=== PATIENT | male | born 1975 | race Hispanic/Latino ===

== ENCOUNTER 2017-08-21 20:24 | Emergency (ER) | payer OTHER ==
[2017-08-21 21:36] LABS: Basophils % (Auto) 0.8 % (0.0-1.8); Eosinophils % (Auto) 3.4 % (0.0-4.3); Hematocrit 47.1 % (35.5-45.6); Hemoglobin 15.2 gm/dl (11.8-15.2); Mean Corpuscular HGB Conc 32 % (32-34); Mean Corpuscular Volume 79 fl (84-94); Platelet Count 194 K/mm3 (140-440); Red Blood Count 5.95 M/mm3 (3.65-5.03); Red Cell Distribution Width 15.6 % (13.2-15.2); White Blood Count 9.7 K/mm3 (4.5-11.0)
[2017-08-21 21:47] LABS: INR 0.98 (0.87-1.13)
[2017-08-21 21:48] LABS: Mean Corpuscular Hemoglobin 26 pg (28-32); Partial Thromboplastin Time 31.5 Sec. (24.2-36.6)
[2017-08-21 21:57] LABS: Alanine Aminotransferase 29 units/L (7-56); Albumin/Globulin Ratio 1.5 %; Alkaline Phosphatase 59 units/L (35-129); Anion Gap 19 mmol/L; BUN/Creatinine Ratio 28; Blood Urea Nitrogen 14 mg/dL (9-20); Calcium 9.1 mg/dL (8.4-10.2); Carbon Dioxide 25 mmol/L (22-30); Chloride 98.8 mmol/L (98-107); Glucose 184 mg/dL (75-100); Potassium 4.4 mmol/L (3.6-5.0); Sodium 138 mmol/L (137-145); Total Protein 6.6 g/dL (6.3-8.2)
[2017-08-21 22:06] LABS: Urine Drugs of Abuse Note Disclamer
[2017-08-21] MEDS ORDERED: LOPRESSOR PO ONE (22:39)
[2017-08-21 22:47] LABS: Bilirubin,Urine Negative (Negative); Blood,Urine Negative (Negative); Ketones,Urine Negative (Negative)
[2017-08-21 22:48] LABS: Leukocyte Esterase,Urine Negative (Negative); Nitrite,Urine Negative (Negative); Protein,Urine <15 mg/dL mg/dL (Negative); RBC,Urine < 1.0 /HPF (0.0-6.0); Urobilinogen,Urine < 2.0 mg/dL (<2.0); WBC,Urine < 1.0 /HPF (0.0-6.0)
[2017-08-22 00:54] VITALS: BP 132/82
--- NOTE | 2017-08-22 01:26 | Emergency Department Report ---
ED Palpitations HPI - General Chief Complaint: Arrhythmia/Palpitations Stated Complaint: POSS A-FIB Time Seen by Provider: 08/21/17 21:13 Source: patient, EMS Mode of arrival: Stretcher Limitations: No Limitations - History of Present Illness Initial Comments: Patient was hospitalized last week for Afib with RVR at [facility] and released on metroprolol 12.5 mg XL, flecanide and pradaxa. He then went for follow up on Saturday to [facility] for check up which he was doing fine. Today he had tachycardia and went to the urgent care where they transferred him to [facility] again. His HR got up to 224 there and he was given an additional dose of flecinide and placed on a cardizem drip. He was transferred here and by the time he got here he was stable. He first had afib 7 years ago when he had to be cardioverted twice. He has had no problems since until last week. MD Complaint: rapid heart beat -: Sudden Context: occured during rest Arrythmia History: atrial fibrillation Associated Symptoms: shortness of breath Treatments Prior to Arrival: vagal maneuvers, beta-alex, calcium channel alex - Related Data Previous Rx's Medication Instructions Recorded Last Taken Type Metoprolol Tartrate 50 mg PO BID #60 tablet 08/22/17 Unknown Rx Allergies Allergy/AdvReac Type Severity Reaction Status Date / Time No Known Allergies Allergy Unverified 08/21/17 20:41 ED Review of Systems ROS: Stated complaint: POSS A-FIB Other details as noted in HPI Constitutional: denies: chills, fever Eyes: denies: eye pain, eye discharge, vision change ENT: denies: ear pain, throat pain Respiratory: denies: cough, shortness of breath, wheezing Cardiovascular: palpitations. denies: chest pain Endocrine: no symptoms reported Gastrointestinal: denies: abdominal pain, nausea, diarrhea Genitourinary: denies: urgency, dysuria Musculoskeletal: denies: back pain, joint swelling, arthralgia Skin: denies: rash, lesions Neurological: denies: headache, weakness, paresthesias Psychiatric: denies: anxiety, depression Hematological/Lymphatic: denies: easy bleeding, easy bruising ED Past Medical Hx - Past Medical History Previous Medical History?: Yes Hx Hypertension: Yes Hx Diabetes: Yes Additional medical history: A.Fib. sleep apnea - Surgical History Additional Surgical History: cardiac ablasion - Social History Smoking Status: Never Smoker Substance Use Type: None - Medications Home Medications: Home Medications Medication Instructions Recorded Confirmed Last Taken Type Metoprolol Tartrate 50 mg PO BID #60 tablet 08/22/17 Unknown Rx ED Physical Exam - General Limitations: No Limitations General appearance: alert, in no apparent distress - Head Head exam: Present: atraumatic, normocephalic - Eye Eye exam: Present: normal appearance - ENT ENT exam: Present: mucous membranes moist - Neck Neck exam: Present: normal inspection - Respiratory Respiratory exam: Present: normal lung sounds bilaterally. Absent: respiratory distress - Cardiovascular Cardiovascular Exam: Present: regular rate, normal rhythm. Absent: systolic murmur, diastolic murmur, rubs, gallop - GI/Abdominal GI/Abdominal exam: Present: soft, normal bowel sounds - Rectal Rectal exam: Present: deferred - Extremities Exam Extremities exam: Present: normal inspection - Back Exam Back exam: Present: normal inspection - Neurological Exam Neurological exam: Present: alert, oriented X3 - Psychiatric Psychiatric exam: Present: normal affect, normal mood - Skin Skin exam: Present: warm, dry, intact, normal color. Absent: rash ED Course Vital Signs 08/21/17 08/21/17 08/21/17 20:42 20:46 21:00 Temperature 98.2 F Pulse Rate 121 H 146 H 107 H Respiratory 17 20 23 Rate Blood Pressure 149/92 149/92 150/93 O2 Sat by Pulse 98 96 96 Oximetry 08/21/17 08/21/17 08/21/17 21:05 21:16 21:30 Temperature Pulse Rate 108 H 105 H Respiratory 26 H 15 22 Rate Blood Pressure 150/93 146/99 O2 Sat by Pulse 96 98 98 Oximetry 08/21/17 08/21/17 08/21/17 21:46 22:00 22:16 Temperature Pulse Rate 107 H 108 H 109 H Respiratory 19 13 26 H Rate Blood Pressure 146/99 127/85 127/85 O2 Sat by Pulse 98 98 97 Oximetry 08/21/17 08/21/17 08/21/17 22:30 22:46 22:47 Temperature Pulse Rate 110 H 109 H 110 H Respiratory 15 24 Rate Blood Pressure 118/77 133/82 133/82 O2 Sat by Pulse 99 98 Oximetry 08/21/17 08/21/17 08/21/17 23:00 23:16 23:30 Temperature Pulse Rate 109 H 110 H 111 H Respiratory 18 23 23 Rate Blood Pressure 113/76 113/76 135/89 O2 Sat by Pulse 98 Oximetry 08/21/17 08/22/17 08/22/17 23:46 00:00 00:04 Temperature Pulse Rate 112 H 109 H 111 H Respiratory 22 22 21 Rate Blood Pressure 135/89 125/88 125/88 O2 Sat by Pulse 98 97 98 Oximetry 08/22/17 08/22/17 08/22/17 00:16 00:30 00:46 Temperature Pulse Rate 111 H 99 H 94 H Respiratory 11 L 24 24 Rate Blood Pressure 125/88 132/82 132/82 O2 Sat by Pulse 100 97 98 Oximetry ED Medical Decision Making - Lab Data Result diagrams: 08/21/17 21:22 08/21/17 21:22 - EKG Data -: EKG Interpreted by Me Rate: normal - EKG Data When compared to previous EKG there are: no significant change Interpretation: nonspecific ST-T wave osiel - Medical Decision Making Because patient is a [facility] patient I intially discussed the case with Dr. Simmons at [place] and she said she would call back for a hospital bed at a [place] facility. Eventually I spoke with envelope maker Dr. Jaqui Haskins with [facility]. She noted that the beta-alex dose was low and the flecanide could be unopposed and could be elevating the HR. She recommended I start him on PO metoprolol 50 mg and see if the rate holds. If it does, then I can send him on on metoprolol. He did well with then and had a rate in the 90s off of the drip. We will send him home and he will start metoprolol 50mg BID. Critical care attestation.: If time is entered above; I have spent that time in minutes in the direct care of this critically ill patient, excluding procedure time. ED Disposition Clinical Impression: Atrial fibrillation with RVR Disposition: TO HOME OR SELFCARE Is pt being admited?: No Does the pt Need Aspirin: No Condition: Stable Instructions: Palpitations (ED), Atrial Fibrillation (ED) Prescriptions: Metoprolol Tartrate 50 mg PO BID #60 tablet Referrals: SHREYAS WALKER MD [Primary Care Provider] - 3-5 Days Time of Disposition: 01:35
[2017-08-22] MEDS ORDERED: LOPRESSOR PO ONE (01:32)
== END 2017-08-22 06:06 | disposition home or self-care (01) ==
LOC: ED 20:24
DX: I48.91 Unspecified atrial fibrillation (principal); I10 Essential (primary) hypertension; E11.9 Type 2 diabetes mellitus without complications
CPT/HCPCS: 36415; 80053; 80307; 81001; 84484; 85025; 85610; 85730; 93005; 93010